=== PATIENT | male | born 1950 | race Caucasian/White ===

== ENCOUNTER 2022-06-20 16:28 | Outpatient (CLI) | payer MEDICARE, BC, SELFPAY ==
[2022-06-20 11:09] LABS: Albumin* 4.3 g/dL (3.3-5.0); Chloride* 104 mmol/L (96-114)
[2022-06-20 11:10] LABS: Potassium* 4.8 mmol/L (3.6-5.1); Sodium* 138 mmol/L (135-149)
[2022-06-20 11:12] LABS: Aspartate Amino Transferase* 28 U/L (12-35); Blood Urea Nitrogen* 21 mg/dL (7-30); Carbon Dioxide* 29 mmol/L (20-32); Cholesterol* 202 mg/dL (90-199); Creatinine* 0.9 mg/dL (0.5-1.5); Estimated Glomerular Filt Rate 90 ml/min; Glucose* 101 mg/dL (60-115); Total Protein* 6.3 g/dL (6.0-8.3)
[2022-06-20 11:13] LABS: Alanine Aminotransferase* 26 U/L (4-50); Alkaline Phosphatase* 49 U/L (40-150); Calcium* 9.8 mg/dL (8.4-10.6); HDL Cholesterol* 77 mg/dL (>=40); LDL Cholesterol Calculated 112 mg/dL (<100); Triglycerides* 65 mg/dL (40-149)
[2022-06-22 12:43] LABS: C Reactive Protein* < 0.5 mg/dL (0.5-1.0)
== END 2022-06-20 16:29 | disposition home or self-care (01) ==
PROVIDERS: PCP Internal Medicine; Visit Provider Internal Medicine
DX: E78.5 Hyperlipidemia, unspecified (principal); I10 Essential (primary) hypertension; Z12.5 Encounter for screening for malignant neoplasm of prostate
CPT/HCPCS: 80053; 80061; 84153; 86140

== ENCOUNTER 2022-07-07 09:18 | Outpatient (CLI) | payer MEDICARE, BC, SELFPAY ==
--- OUTSIDE RECORDS SUMMARY | 2022-07-07 09:20 | XMS_ITS | Clinical Summary ---
:1950 Author Organization [employer] [facility] [employer] [facility] [place] [address] Care Team Providers Name Role Phone Clarence Tomas MD Primary Care Provider Allergies Active Allergy Reactions Severity Noted Date Comments Tramadol Nausea And Vomiting Low 04/08/2012 Medications Medication Sig Dispensed Refills Start Date End Date Status atorvastatin Take 1 tablet by 0 03/28/2012 Active (LIPITOR) 20 mg mouth once daily. tablet HYDROcodone-acetamino Take 1 tablet by 0 03/28/2012 Active phen, 5-500 mg, mouth every 6 hours (VICODIN) Tab tablet if needed for Pain. Max acetaminophen dose: 4000mg in 24 hrs. cyclobenzaprine Take 1 tablet by 0 03/28/2012 Active (FLEXERIL) 10 mg mouth 3 times tablet daily. gabapentin Take 1 capsule by 30 capsule 3 04/08/2012 Active (NEURONTIN) 300 mg mouth at bedtime. 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 03/28/2012 Immunizations Name Administration Dates Next Due COVID-19 vaccine ([employer] 30mcg/0.3mL) BILL KRISHNAMURTHY 07/20 Influenza, Inactivated AIIV4 (Age 65+ Years) Preserv 021 Free Social History Tobacco Use Types Packs/Day Years Used Date Never Smoker Alcohol Use Standard Drinks/Week Comments Not Asked 0 (1 standard drink = 0.6 oz pure alcoho l) Sex Assigned at Date Recorded Not on file Obstetrics History Last Filed Vital Signs Vital Sign Reading Time Taken Comments Blood Pressure 148/90 05/06/2012 3:13 PM CDT Pulse 59 05/06/2012 3:13 PM CDT Temperature 36.8 ??C (98.2 ??F) 05/06/2012 3:13 PM CDT Respiratory Rate - - Oxygen Saturation - - Inhaled Oxygen Concentration - - Weight 83 kg (183 lb) 05/06/2012 3:13 PM CDT Height - - Body Mass Index - - Plan of Treatment Health Maintenance Due Date Last Done Comments Tdap 1960 Depression screening for age 12+ 1961 BMI (ht and wt on same day) for age 0805/25/1967 18+ Hepatitis C screening for age 18-79 1967 Tetanus booster 1969 Colonoscopy through age 75 1994 Lipids for age 45-75 1994 Zoster (shingles) series for age 50+ 1999 (1 of 2) Pneumococcal series for age 65+ (1 - 2014 PCV) COVID-19 vaccine series (4 - Booster 11/20/2021 07/20/2021, 01/04/2021, for Pfizer series) 12/14/2020 Influenza for age 65+ 06/15/2022 07/20/2021 Results Not on filefrom Last 3 Months Insurance Payer Benefit Plan / Subscriber ID Effective Dates Phone Addre ss Type Group [employer] RHONDA LENZ [id number] 2016-Present [address] [address] [place], [place] MR ONLY [id number] Care Teams Receptionist/Telephone Operator Relationship Specialty Start Date End Date Clarence Tomas MD PCP - General 03/28/121999 [place] [address]
--- NOTE | 2022-07-07 11:52 | W.ANESCHARGE ---
Anesthesia Charges Start Date/Time Anesthesia Start Date: 07/07/22 Anesthesia Start Time: 10:40 Stop Date/Time Anesthesia Stop Date: 07/07/22 Anesthesia Stop Time: 11:10 Summary Extremes of Age: Over 70-CPT [id number]
== END 2022-07-07 09:19 | disposition home or self-care (01) ==
LOC: OP CLINIC 09:19
PROVIDERS: PCP Internal Medicine; Visit Provider Internal Medicine
DX: Z12.11 Encounter for screening for malignant neoplasm of colon (principal); K63.5 Polyp of colon
CPT/HCPCS: 00811; 45380; 88305; 99100; J2704

== ENCOUNTER 2022-10-23 14:07 | Outpatient (CLI) | payer MEDICARE, BC, SELFPAY ==
[2022-10-23 17:32] LABS: Chloride* 104 mmol/L (96-114)
[2022-10-23 17:33] LABS: Albumin* 4.4 g/dL (3.3-5.0); Sodium* 138 mmol/L (135-149)
[2022-10-23 17:34] LABS: Potassium* 4.6 mmol/L (3.6-5.1)
[2022-10-23 17:36] LABS: Alanine Aminotransferase* 25 U/L (4-50); Alkaline Phosphatase* 54 U/L (40-150); Aspartate Amino Transferase* 29 U/L (12-35); Bilirubin Total* 0.8 mg/dL (0.1-1.5); Blood Urea Nitrogen* 21 mg/dL (7-30); Carbon Dioxide* 28 mmol/L (20-32); Cholesterol* 246 mg/dL (90-199); Creatinine* 0.9 mg/dL (0.5-1.5); Estimated Glomerular Filt Rate 90 ml/min; Glucose* 97 mg/dL (60-115); Total Protein* 6.6 g/dL (6.0-8.3)
[2022-10-23 17:37] LABS: HDL Cholesterol* 72 mg/dL (>=40); LDL Cholesterol Calculated 159 mg/dL (<100); Triglycerides* 76 mg/dL (40-149)
== END 2022-10-23 14:08 | disposition home or self-care (01) ==
PROVIDERS: PCP Internal Medicine; Visit Provider Internal Medicine
DX: Z00.00 Encounter for general adult medical examination without abnormal findings (principal); E78.5 Hyperlipidemia, unspecified; I10 Essential (primary) hypertension
CPT/HCPCS: 80053; 80061

== ENCOUNTER 2023-01-25 09:12 | Day surgery (SDC) | payer MEDICARE, BC, SELFPAY ==
[2023-01-25] VITALS (12 sets, daily range): BP systolic 133–156; BP diastolic 75–98; PULSE 50–73; RESP 16; TEMP 36.3–36.6; O2SAT 97–100; BMI 24.0
[2023-01-25] MEDS: SODIUM CHLORIDE 0.9 % (FLUSH) 10 ML SYRINGE IVF (09:40)
[2023-01-25] MEDS: LACTATED RINGERS 1000 ML 1,000 ML 100 ML IV ×2 (09:40→11:48)
--- NOTE | 2023-01-25 09:49 | SUR.PREOP ---
Patient provided home covid negative results to RN.
[2023-01-25] MEDS: CEFAZOLIN 2 GM INJ IVP (10:00)
--- NOTE | 2023-01-25 10:52 | W.ANESCHARGE ---
Anesthesia Charges Start Date/Time Anesthesia Start Date: 01/25/23 Anesthesia Start Time: 09:47 Stop Date/Time Anesthesia Stop Date: 01/25/23 Anesthesia Stop Time: 11:56 Summary Extremes of Age - Over 70 or under 1: MDA
[2023-01-25] MEDS: BUPIVACAINE 0.25% 30 ML INJECTION (11:30)
--- NOTE | 2023-01-25 11:51 | P.GSOP_ITS ---
Operative Note Date of procedure: 01/25/23 Pre-op diagnosis: Left inguinal hernia Post-op diagnosis: Same, indirect Type of Procedure: Laparoscopic left inguinal hernia repair with placement of mesh Indications: Patient is a 72-year-old male who presented to clinic with a symptomatic left inguinal hernia. Different treatment options were reviewed, including observ ation versus operative intervention. Risks and benefits of operative intervention were discussed at length with the patient. Risks included but was not limited to: Bleeding, infection, risk of damage to surrounding structures, possible need for additional procedures, possible need to convert to an open operation and postoperative complications such as pneumonia, pulmonary emboli or ME. All questions and concerns were addressed with the patient agreeing to proceed. Procedure Description: After discussing the risks and benefits of the procedure, the patient signed informed consent.? The operative site was marked and the patient was brought to the operating room and placed on the operating table in supine position.? Care was taken to pad the patient's pressure points.?? The patient was then intubated by anesthesia.?? The operative site was then prepped and draped in the usual sterile fashion.? A time-out was then performed. A curvilinear incision was made below the umbilicus. Dissection was carried down to subcutaneous tissue until the anterior rectus fascia was encountered. This was incised off the midline. The rectus muscles were then retracted exposing the posterior fascia. A space maker port with a dissecting balloon was then introduced. The preperitoneal space was inflated under direct vision. The balloon was then removed and the preperitoneal space insufflated. A 10 mm 30 degree scope was then advanced and the area was surveyed for bleeding. Dissection began on the left side. Simón's ligament and the pubic bone was exposed medially. Following this dissection was carried out laterally. A indirect defect was noted. The sac was dissected free from the cord structures using a combination of sharp and blunt dissection. Once the sac was completely reduced, a piece of Bard 3D mesh for the appropriate side was placed into the abdomen. This was positioned over the cord structures. A Tacker was used to attach the mesh medially at Simón's ligament. Two tacks were placed laterally, taking care to remain above the inguinal ligament and not injure the epigastric vessels. Once this was completed the sac was placed on top of the mesh and the preperitoneal space desufflated under direct vision. The ports were removed. The fascia from the infraumbilical port was closed with 0 Vicryl. The skin incisions were closed with absorbable subcuticular suture. Sterile dressings were then applied. The scrotum was examined to ensure that both testicles were down. Instrument sponge and needle counts were correct at the end of the case. ? Findings: Left indirect inguinal hernia Anesthesia: GETA Surgeon: Gita Dorsey MD Estimated blood loss (mL): 10 Condition: stable Disposition: same day
[2023-01-25] MEDS: ONDANSETRON 2 MG/ML inj 4 MG IVP (12:13)
--- NOTE | 2023-01-25 12:19 | P.ANES_ITS ---
Anesthesia Charges Start Date/Time Anesthesia Start Date: 01/25/23 Anesthesia Start Time: 09:47 Stop Date/Time Anesthesia Stop Date: 01/25/23 Anesthesia Stop Time: 11:56 Summary Extremes of Age - Over 70 or under 1: [employer]ER
== END 2023-01-25 13:54 | disposition home or self-care (01) ==
PROVIDERS: PCP Internal Medicine; Visit Provider Surgery
PROC: (CPT 49650; principal; 2023-01-25 10:30)
DX: K40.90 Unilateral inguinal hernia, without obstruction or gangrene, not specified as recurrent (principal)
CPT/HCPCS: 49650; 00830; 00860; 99100; C1781; J0330; J0690; J1100; J1170; J2250; J2405; J2704; J3010; J3490; J7120

== ENCOUNTER 2023-04-13 08:16 | Outpatient (CLI) | payer MEDICARE, BC, SELFPAY | END 2023-04-13 08:17 | disposition home or self-care (01) | LOC: NFLDREF 04-14 09:40 | PROVIDERS: PCP Internal Medicine; Referring Provider Internal Medicine; Visit Provider Internal Medicine | DX: E78.5 Hyperlipidemia, unspecified (principal) | CPT/HCPCS: 80053; 80061 ==